=== PATIENT | male | born 1995 | race Caucasian/White ===

== ENCOUNTER 2024-11-23 13:45 | Emergency (ER) | payer OTHER ==
[~2024-11-23] VITALS: Ht 172.7 cm; Wt 90.9 kg
[2024-11-23 13:57] VITALS: BP 114/72; PULSE 61; RESP 18; TEMP 97.9; O2SAT 100
[2024-11-23] MEDS ORDERED: BUPR1TAB46 SL (14:02)
[2024-11-23] MEDS: BUPRENORPHINE HCL/NALOXONE HCL 8-2 MG SUBLINGUAL TABLET SL ONE (15:37)
== END 2024-11-23 16:20 | disposition home or self-care (01) ==
LOC: EMS 13:48
DX: R53.83 Other fatigue (principal); R53.81 Other malaise; F15.90 Other stimulant use, unspecified, uncomplicated; Z76.0 Encounter for issue of repeat prescription; Z88.0 Allergy status to penicillin; Z79.899 Other long term (current) drug therapy
CPT/HCPCS: 99283